=== PATIENT | male | born 1950 | race Two or more races ===

== ENCOUNTER 2017-09-20 10:19 | Emergency (ER) | payer MEDICARE ==
[~2017-09-20] VITALS: Ht 157.5 cm; Wt 88.4 kg
[~2017-09-20 10:19] MED LIST: METF-163 PO; SAW160CA4 PO; TRAM50TA2 PO
[2017-09-20 10:23] VITALS: BP 128/81
[2017-09-20] MEDS ORDERED: OXYcodone/APAP 5/325MG TABLET ONE (11:14)
[2017-09-20] MEDS ORDERED: OXYcodone/APAP 5/325MG TABLET PO ONE (11:30)
== END 2017-09-20 11:29 | disposition home or self-care (01) ==
LOC: ED 11:23
DX: B02.33 Zoster keratitis (principal); K08.89 Other specified disorders of teeth and supporting structures; I10 Essential (primary) hypertension; E11.9 Type 2 diabetes mellitus without complications
CPT/HCPCS: 99283

== ENCOUNTER → 2020-08-28 | Outpatient (CLI) | payer MEDICARE | END | disposition home or self-care (01) | LOC: STAR 14:37 | PROVIDERS: ATTEND Family Medicine Adult Medicine | DX: R07.89 Other chest pain (principal) | CPT/HCPCS: 93005 ==